=== PATIENT | male | born 1960 | race Caucasian/White ===

== ENCOUNTER 2018-11-13 14:04 | Emergency (ER) | payer SELFPAY ==
[~2018-11-13] VITALS: Ht 175.3 cm; Wt 77.3 kg
[2018-11-13 14:04] VITALS: TEMP 97
[2018-11-13] MEDS ORDERED: ZOCOR 20MG20 MG PO (14:14)
[2018-11-13] MEDS ORDERED: PRILOSEC 20MG20 MG PO (14:15)
[2018-11-13] MEDS ORDERED: HCTZ 25MG TAB25 MG PO (14:15)
[2018-11-13 15:00] LABS: BASO # 0.1 (0.0-0.2); BASO % 0.6 % (0.0-2.0); EOS # 0.2 (0.0-0.7); EOS % 1.5 % (0-4.0); GRAN # 10.1 (1.4-6.5); GRAN % 82.5 % (42.2-75.2); HEMATOCRIT 40.6 % (42.0-52.0); HEMOGLOBIN 13.8 g/dl (13.5-18.0); LYMPH # 1.1 (1.2-3.4); LYMPH % 9.1 % (20.0-51.0); MEAN CELL VOLUME 89 fl (80.0-100.0); MEAN CORPUSCULAR HEMOGLOBIN 30 pg (27.0-31.0); MEAN CORPUSCULAR HGB CONC 34 g/dl (33.0-37.0); MEAN PLATELET VOLUME 9.4 fl (7.4-10.4); MONO # 0.7 (0.1-0.6); MONO % 5.8 % (1.7-9.3); PLATELET COUNT 466 K/mm3 (130-400); RED BLOOD COUNT 4.59 M/mm3 (4.20-5.60); REDCELL DISTRIBUTION WIDTH-CV 13.1 % (11.5-14.5)
[2018-11-13 15:06] LABS: PROTHROMBIN TIME 11.3 SECONDS (9.7-12.8)
[2018-11-13 15:09] LABS: PARTIAL THROMBOPLASTIN TIME 27.6 SECONDS (26.0-37.0)
[2018-11-13 15:12] LABS: ALBUMIN 3.9 gm/dL (3.5-5.0); BILIRUBIN,TOTAL 0.5 mg/dL (0.0-1.0); CALCIUM 8.8 mg/dL (8.4-10.2); CREATININE, serum 0.68 (0.66-1.25); POTASSIUM 3.6 mmol/L (3.4-5.0); TOTAL PROTEIN 6.7 gm/dL (6.4-8.2)
[2018-11-13 18:00] VITALS: BP 153/93; PULSE 87
== END 2018-11-13 18:00 | disposition short-term general hospital (02) ==
LOC: COL.ER 14:04
PROVIDERS: Emergency Medicine
DX: S06.6X0A Traumatic subarachnoid hemorrhage without loss of consciousness, initial encounter (principal); S01.01XA Laceration without foreign body of scalp, initial encounter; S43.101A Unspecified dislocation of right acromioclavicular joint, initial encounter; R40.2412 Glasgow coma scale score 13-15, at arrival to emergency department; I10 Essential (primary) hypertension; W11.XXXA Fall on and from ladder, initial encounter; Y92.59 Other trade areas as the place of occurrence of the external cause
CPT/HCPCS: J3010

== ENCOUNTER 2018-11-26 10:00 | Outpatient (RCR) | payer OTHER ==
[~2018-11-26 10:00] MED LIST: HCTZ 25MG TAB25 MG PO; PRILOSEC 20MG20 MG PO; ZOCOR 20MG20 MG PO
== END 2019-01-18 17:50 | disposition home or self-care (01) ==
LOC: WSC 10:00
DX: S43.101A Unspecified dislocation of right acromioclavicular joint, initial encounter (principal)

== ENCOUNTER 2019-02-26 07:52 | Emergency (ER) | payer BC ==
[~2019-02-26] VITALS: Ht 175.3 cm; Wt 77.3 kg
[2019-02-26 07:56] VITALS: TEMP 97.6
[2019-02-26 08:27] LABS: BASO # 0.1 (0.0-0.2); BASO % 1.2 % (0.0-2.0); EOS # 0.2 (0.0-0.7); EOS % 2.3 % (0-4.0); GRAN # 5.1 (1.4-6.5); GRAN % 69.2 % (42.2-75.2); HEMATOCRIT 44.1 % (42.0-52.0); LYMPH # 1.3 (1.2-3.4); LYMPH % 17.8 % (20.0-51.0); MEAN CELL VOLUME 90 fl (80.0-100.0); MEAN CORPUSCULAR HEMOGLOBIN 31 pg (27.0-31.0); MEAN CORPUSCULAR HGB CONC 34 g/dl (33.0-37.0); MEAN PLATELET VOLUME 9.3 fl (7.4-10.4); MONO # 0.7 (0.1-0.6); PLATELET COUNT 473 K/mm3 (130-400); RED BLOOD COUNT 4.91 M/mm3 (4.20-5.60); REDCELL DISTRIBUTION WIDTH-CV 13.2 % (11.5-14.5)
[2019-02-26 08:37] LABS: PROTHROMBIN TIME 11.5 SECONDS (9.7-12.8)
[2019-02-26 08:38] LABS: ALANINE AMINOTRANSFERASE 29 U/L (21-72); ALBUMIN 4.6 gm/dL (3.5-5.0); ALKALINE PHOSPHATASE 91 U/L (50-136); ANION GAP 13 mmol/L (7-16); AST,SGOT 31 U/L (15-37); BILIRUBIN,TOTAL 0.4 mg/dL (0.0-1.0); BLOOD UREA NITROGEN 15 mg/dL (9-20); CALCIUM 9.5 mg/dL (8.4-10.2); CARBON DIOXIDE 27 mmol/L (22-30); CHLORIDE 101 mmol/L (98-107); GLUCOSE 100 mg/dL (74-106); POTASSIUM 3.9 mmol/L (3.4-5.0); SODIUM 141 mmol/L (137-145); TOTAL PROTEIN 7.6 gm/dL (6.4-8.2)
[2019-02-26 08:41] LABS: D-DIMER < 200.00 ng/mLDDu (200-230)
[2019-02-26 08:57] LABS: TROPONIN-I < 0.012 ng/mL (0.000-0.035)
[2019-02-26] MEDS ORDERED: COZAAR 25MG25 MG/TAB PO (09:42)
[2019-02-26] MEDS ORDERED: PROTONIX 40MG T40 MG PO (09:43)
[2019-02-26] MEDS ORDERED: PRINZIDE 12.5 M1 TAB PO (09:44)
[2019-02-26] MEDS ORDERED: OMEGA-3 1000 MG1 CAP PO (09:45)
[2019-02-26 12:08] VITALS: BP 131/87; PULSE 65
== END 2019-02-26 12:10 | disposition home or self-care (01) ==
LOC: COL.ER 07:52
PROVIDERS: Emergency Medicine
DX: R06.02 Shortness of breath (principal); I10 Essential (primary) hypertension; E78.5 Hyperlipidemia, unspecified; Z90.89 Acquired absence of other organs
CPT/HCPCS: J7030

== ENCOUNTER → 2023-08-07 | Outpatient (CLI) | payer MEDICARE, BC ==
[~2023-08-07] MED LIST changes: +COZAAR 25MG25 MG/TAB PO; +OMEGA-3 1000 MG1 CAP PO; +PRINZIDE 12.5 M1 TAB PO; +PROTONIX 40MG T40 MG PO
== END ==
LOC: COL.RAD 08:43
DX: Z13.6 Encounter for screening for cardiovascular disorders (principal)